=== PATIENT | female | born 1990 | race Caucasian/White ===

== ENCOUNTER 2019-01-09 09:19 | Emergency (ER) | payer OTHER ==
[~2019-01-09] VITALS: Ht 157.5 cm; Wt 66.0 kg
[2019-01-09 09:38] VITALS: BP 116/70; PULSE 83; RESP 18; Ht 157.5 cm; Wt 66.0 kg
[2019-01-09] MEDS ORDERED: D-ME473S2 PO (10:07)
[2019-01-09] MEDS ORDERED: AZIT250T PO (10:07)
[2019-01-09] MEDS ORDERED: IBUP-1542 PO (10:07)
--- NOTE | 2019-01-09 10:09 | ERD ---
ER Documentation Chief Complaint Chief Complaint right ear pain since last night HPI 28-year-old female presents with right ear pain for last day. She said cough and congestion for last week. She has a history of TM perforation due to otitis media. She has no active bleeding or discharge. Denies fevers, shortness breath or chest pain. ROS All systems reviewed and are negative except as per history of present illness. Medications Home Meds Active Scripts Dextromethorphan Hb-Promethazine Hcl* (Promethazine DM* Syrup) 473 Ml Syrup, 5 ML PO Q6 PRN for COUGH for 5 Days, ML Prov:FELICIA SIMS MD 01/09/19 Ibuprofen* (Motrin*) 600 Mg Tab, 600 MG PO Q6, #15 TAB Prov:FELICIA SIMS MD 01/09/19 Azithromycin* (Zithromax*) 250 Mg Tablet, 250 MG PO .ZPACK DIRECTED, #6 TAB TAKE 500 MG (2 TABS) THE FIRST DAY THEN 250 MG (1 TAB) DAYS 2-5 Prov:FELICIA SIMS MD 01/09/19 FmHx Family History: No diabetes, No coronary disease, No other Physical Exam Vitals Vital Signs Date Temp Pulse Resp B/P (MAP) Pulse Ox O2 O2 Flow FiO2 Time Delivery Rate 01/09/19 98.3 83 18 116/70 100 09:38 (85) Physical Exam Const: No acute distress Head: Atraumatic Eyes: Normal Conjunctiva ENT: Normal External Ears, Nose and Mouth. Right TM red and bulging. No mastoid tenderness. No appreciable perforation. Airway patent. Neck: Full range of motion. No meningismus. Resp: Clear to auscultation bilaterally Cardio: Regular rate and rhythm, no murmurs Abd: Soft, non tender, non distended. Normal bowel sounds Skin: No petechiae or rashes Back: No midline or flank tenderness Ext: No cyanosis, or edema Neur: Awake and alert Psych: Normal Mood and Affect Results 24 hrs Current Medications Medications Dose Sig/Ernie Start Time Status Last (Trade) Ordered Route PRN Stop Time Admin Dose Reason Admin Ibuprofen 600 mg ONCE ONCE 01/09/19 (Motrin) PO 10:30 01/09/19 10:31 12 mg ONCE ONCE 01/09/19 Dexamethasone PO 10:30 (Decadron) 01/09/19 10:31 Procedures/MDM Patient presents with signs of acute otitis media without signs of perforation, mastoiditis, obstruction, abscess, additional complications. She is given Decadron 12 mg by mouth, ibuprofen. She will be treated with Zithromax, promethazine, ibuprofen, primary care follow-up and return precautions. The patient was stable with no new complaints during the ER course. Clinically, there is no current evidence to suggest meningitis, sepsis, acute abdomen, pneumonia, stroke, acute coronary syndrome, pulmonary embolism, aortic dissection or any other emergent condition appearing to require further ev aluation or hospitalization. Patient counseled regarding my diagnostic impression and care plan. Prior to discharge all questions answered. Pt agrees with treatment plan and understands strict return precautions. Pt is instructed to follow up with primary care provider within 24-48 hours. Precautionary instructions provided including instructions to return to the ER if not improvi ng or for any worsening or changing symptoms or concerns. Departure Diagnosis: Primary Impression: Right ear pain Condition: Stable Patient Instructions: Otitis Media, Abx Tx (Adult) Additional Instructions: Recheck for new or worsening symptoms or with primary care doctor. FELICIA SIMS MD Jan 09, 2019 10:09
[2019-01-09] MEDS ORDERED: IBUPROFEN 600 MG TAB PO ONE (10:30)
[2019-01-09] MEDS ORDERED: DEXAMETHASONE 4 MG TAB PO ONE (10:30)
== END 2019-01-09 12:14 | disposition home or self-care (01) ==
LOC: FTE 09:19
DX: H92.01 Otalgia, right ear (principal)
CPT/HCPCS: Z7502; Z7610; 99283